=== PATIENT | female | born 1970 | race Caucasian/White ===

== ENCOUNTER → 2019-06-21 | Outpatient (CLI) | payer BC ==
--- NOTE | 2019-06-21 16:57 | Diagnostic Imaging Report ---
PROCEDURE: US Non-ob pelvis comp/trans. TECHNIQUE: Multiple real-time grayscale images were obtained of the pelvis in various projections endovaginally. Transabdominal imaging was also performed. INDICATION: Abnormal uterine bleeding. FINDINGS: Uterus is anteverted measuring 10.5 x 6.1 x 6.0 cm. No uterine mass is detected. Endometrium is 10 mm in thickness. There is some mild heterogeneity to the endometrium, but no discrete mass is identified. Echogenic foci on both the right and left side of the uterus are noted, likely representing patient's known Essure devices. Right ovary measures 3.4 x 1.5 x 3.3 cm. Right ovary does contain a 15 mm cyst. There is blood flow to the right ovary. Left ovary was not visualized. No adnexal mass or free fluid is detected. IMPRESSION: 1. 15 mm right ovarian cyst. 2. Mild thickening of the endometrium. Dictated by: Dictated on workstation # [id number]
== END ==
LOC: RAD 13:40
PROVIDERS: ATTEND Obstetrics & Gynecology
DX: Z12.31 Encounter for screening mammogram for malignant neoplasm of breast (principal); N83.201 Unspecified ovarian cyst, right side
CPT/HCPCS: 76830; 76856; 77063; 77067

== ENCOUNTER → 2019-07-06 | Outpatient (CLI) | payer BC ==
--- NOTE | 2019-07-06 13:08 | Diagnostic Imaging Report ---
Indication: Right breast densities. Patient presents for additional views. Correlation is made with recent screening study from 06/21/2019. Unilateral right 2-D and 3-D diagnostic mammography was performed including spot compression, MLO and conventional 90 degree lateral views. There are some persistent nodular densities in the outer aspect of the right breast approximately 4 and 6 cm from the nipple. These appear to be slightly cephalad. No other abnormalities are seen. IMPRESSION: BI-RADS 0. Persistent densities in the upper and outer aspect of the right breast, as described. Further evaluation with ultrasound is recommended and will be performed today. ACR BI-RADS Category 0: Incomplete. (Needs additional imaging evaluation). Result letter will be mailed to the patient. Note: At least 10% of breast cancer is not imaged by mammography. Dictated by: Dictated on workstation # [id number]
--- NOTE | 2019-07-06 14:14 | Diagnostic Imaging Report ---
INDICATION: Right breast densities. This study is performed for further evaluation. COMPARISON: Correlation is made with the diagnostic mammogram from earlier this same day. FINDINGS: Sonographic interrogation of the upper and outer aspect of the right breast was performed. There is a bilobed slightly complex cyst at the 9 o'clock location of the right breast 6 cm from the nipple. This in aggregate measures approximately 9 mm x 4 mm x 6 mm. This most likely accounts for one of the densities noted mammographically. There is a second region of hypoechogenicity at the 10 o'clock location 4 cm from the nipple which may represent either a cyst cluster or perhaps a prominent duct. This measures approximately 10 mm x 5 mm x 4 mm. This may account for the mammographic density. No concerning sonographic finding is identified. IMPRESSION: Probable complex cysts and/or prominent ducts in the upper outer right breast as described, likely accounting for the mammographic densities. These have fairly benign features. Even so, a followup right mammogram and right breast ultrasound in 6 months would be recommended to show continued stability. ACR BI-RADS Category 3: Probably benign findings. Dictated by: Dictated on workstation # [id number]
== END ==
LOC: RAD 12:46
PROVIDERS: ATTEND Obstetrics & Gynecology
DX: R92.2 Inconclusive mammogram (principal)

== ENCOUNTER 2019-07-21 05:39 | Outpatient (RCR) | payer BC ==
[~2019-07-21] VITALS: Ht 160 cm; Wt 92.9 kg
[2019-07-21] MEDS ORDERED: CYAN200014 PO (09:23)
[2019-07-21] MEDS ORDERED: ASCO-262 PO (09:23)
[2019-07-21 10:02] LABS: BASOPHILS % (AUTO) 0 % (0-10); EOSINOPHILS # (AUTO) 0.3 10^3/uL (0.0-0.3); EOSINOPHILS % (AUTO) 4 % (0-10); HEMATOCRIT 42 % (35-52); HEMOGLOBIN 14.6 G/DL (11.5-16.0); LYMPHOCYTES # (AUTO) 2.6 X 10^3 (1.0-4.0); LYMPHOCYTES % (AUTO) 37 % (12-44); MEAN CORPUSCULAR HEMOGLOBIN 31 PG (25-34); MEAN CORPUSCULAR HGB CONC 35 G/DL (32-36); MEAN CORPUSCULAR VOLUME 90 FL (80-99); MEAN PLATELET VOLUME 9.9 FL (7.4-10.4); MONOCYTES # (AUTO) 0.5 X 10^3 (0.0-1.0); MONOCYTES % (AUTO) 8 % (0-12); NEUTROPHILS # (AUTO) 3.5 X 10^3 (1.8-7.8); NEUTROPHILS % (AUTO) 51 % (42-75); PLATELET COUNT 326 10^3/uL (130-400); RED CELL DISTRIBUTION WIDTH 13.3 % (10.0-14.5)
[2019-07-25] MEDS ORDERED: SIME80TA16 PO (07:31)
[2019-07-25] MEDS ORDERED: IBUP-844 PO (07:31)
[2019-07-25] MEDS ORDERED: DCS100C PO (07:31)
[2019-07-25] MEDS ORDERED: BENZ1LOZ64 MM (07:31)
[2019-07-25] MEDS ORDERED: HYDR-34 PO (07:31)
== END 2019-07-21 10:31 | disposition home or self-care (01) ==
LOC: PREOP 05:39
PROVIDERS: ATTEND Obstetrics & Gynecology
DX: Z01.812 Encounter for preprocedural laboratory examination (principal); N93.8 Other specified abnormal uterine and vaginal bleeding; N81.89 Other female genital prolapse; N94.6 Dysmenorrhea, unspecified; Z20.828 Contact with and (suspected) exposure to other viral communicable diseases
CPT/HCPCS: 36415; 85025; 86850; 86900; 86901; 87081; 87635

== ENCOUNTER 2019-07-25 06:10 | Day surgery (SDC) | payer BC ==
[~2019-07-25] VITALS: Ht 160 cm; Wt 92.9 kg
[2019-07-25] VITALS (10 sets, daily range): BP systolic 106–133; BP diastolic 58–73
[~2019-07-25 06:10] MED LIST: ASCO-262 PO; CYAN200014 PO
[2019-07-25] MEDS ORDERED: LACTATED RINGERS 1,000 ML IV SCH (06:12)
[2019-07-25] MEDS ORDERED: CLINDAMYCIN 900 MG/50 ML IVPB 50 ML IV ONE ×2 (06:15→06:35)
[2019-07-25] MEDS ORDERED: metroNIDAZOLE 500MG/100ML IVPB 100 ML IV ONE (06:15)
[2019-07-25] MEDS ORDERED: VASOPRESSIN INJECTION 20 UNIT/ML VIAL ONE (06:42)
[2019-07-25] MEDS ORDERED: ESTROGENS CONJ. CREAM 30 GM (PREMARIN) TUBE ONE (06:42)
[2019-07-25] MEDS ORDERED: BUPIVACAINE 0.25% 30 ML (SENSORCAINE) VIAL ONE (06:42)
[2019-07-25] MEDS ORDERED: NS (IVPB) 100 ML ONE (06:42)
--- OUTSIDE RECORDS SUMMARY | 2019-07-25 06:43 | XMS REPORT ---
Author Author Lissa GODINEZ [facility] Address [address] [place], [place] [id number] Care Team Providers Care Admeasurer Name Role Phone TONE GODINEZ PCP Allergies and Adverse Reactions Not available. Plan of Treatment Planned Activity Comments Planned Date Planned Time Plan/Goal CBC with Differential 06/02/2018 12:00 AM CMP 06/02/2018 12:00 AM .Lipid Panel 06/02/2018 12:00 AM THYROID PANEL. 06/02/2018 12:00 AM THYROID PANEL. 06/02/2018 12:00 AM THYROID PANEL. 06/02/2018 12:00 AM Medications Active Name Start Date Estimated Completion Date SIG Co mments phentermine 37.5 mg oral capsule take 1 capsule (37.5 mg) by oral route once daily before breakfast Problem List Not available. Vital Signs Date Time BP-Sys(mm[Hg] BP-Gilma(mm[Hg]) HR(bpm) RR(rpm) Temp WT HT HC BMI BSA BMI Percentile O2 Sat(%) 06/02/2018 8:25:00 AM 128 mmHg 86 mmHg 104 bpm 18 rpm 98.1 F 185 lbs 65 in 30.7853 kg/m 1.9617 m 98 % Social History Name Description Comments Tobacco Never smoker Alcohol Current some day Uses seatbelts History of Procedures Date Ordered Description Order Status 06/02/2018 12:00 AM ROUTINE VENIPUNCTURE Reviewed Results Summary Not available. History Of Immunizations Not available. History of Past Illness Name Date of Onset Comments Fatigue Jun 02 2018 9:17AM Hyperlipemia Jun 02 2018 9:17AM Payers Insurance Name Company Name Plan Name Plan Number Policy Number Shyam cy Group Number Start Date [facility] [id number] [facility] [id number] N/A History of Encounters Visit Date Visit Type Provider 06/02/2018 Office visit TONE BELL
--- OUTSIDE RECORDS SUMMARY | 2019-07-25 06:43 | XMS REPORT | Continuity of Care Document ---
Demographics Preferred Language Unknown Marital Status Unknown Voodoo Affiliation Unknown Race Unknown Ethnic Group Unknown Author Organization Unknown Address Unknown Phone Unavailable Allergies Active Description Code Type Severity Reaction Onset Reported/Identified Relationship to Patient Clinical Status Yes KEFLEX UNKNOWN UNKNOWN Yes cephalexin [id number] Drug Allerg y Mild HIVES 07/21/2019 Medications There is no data. Problems Date Dx Coded Attending Type Code Diagnosis Diagnosed By 2018 W 466.0 ACUT E BRONCHITIS 2018 W J20.9 ACUT E BRONCHITIS, UNSPECIFIED 06/22/2019 [facility] DOTONE S Ot N83.201 UNSPECIFIED OVARIAN CYST, RIGHT SIDE 06/22/2019 [facility] , TONE S Ot Z12.31 ENCNTR SCREEN MAMMOGRAM FOR MALIGNANT NE 07/08/2019 [facility] TONE CORTEZ S Ot R92.2 INCONCLUSIVE MAMMOGRAM 07/18/2019 [facility] TONE CORTEZ S Ot N83.201 UNSPECIFIED OVARIAN CYST, RIGHT SIDE 07/18/2019 [facility] , TONE S Ot Z12.31 ENCNTR SCREEN MAMMOGRAM FOR MALIGNANT NE Procedures Code Description Performed By Per formed On V2520 Cont act lens hydrophilic 01/01/2016 Results Test Result Range Coronavirus SARS-CoV-2 SO 2018 - 0 08:34 Coronavirus Ab [Units/volume] in Serum Negative Negative Complete blood count (CBC) with automate d white blood cell (WBC) differential - 07/21/19 09:40 Blood leukocytes automated count (number/volume) 7.0 10*3/uL 4.3-11.0 Blood erythrocytes automated count (number/volume) 4.69 10*6/uL 4.35-5.85 Venous blood hemoglobin measurement (mass/volume) 14.6 g/dL 11.5-16.0 Blood hematocrit (volume fraction) 42 % 35-52 Automated erythrocyte mean corpuscular volume 90 [ foz_us] 80-99 Automated erythrocyte mean corpuscular h emoglobin (mass per erythrocyte) 31 pg 25-34 Automated erythrocyte mean corpuscular h emoglobin concentration measurement (mass/volume) 35 g/dL 32-36 Automated erythrocyte distribution width ratio 13. 3 % 10.0- 14.5 Automated blood platelet count (count/volume) 326 10*3/uL 130-400 Automated blood platelet mean volume measurement 9.9 [foz_us] 7.4-10.4 Automated blood neutrophils/100 leukocytes 51 % 42-75 Automated blood lymphocytes/100 leukocytes 37 % 12-44 Blood monocytes/100 leukocytes 8 % 0-12 Automated blood eosinophils/100 leukocytes 4 % 0-10 Automated blood basophils/100 leukocytes 0 % 0-10 Blood neutrophils automated count (number/volume) 3.5 10*3 1.8-7.8 Blood lymphocytes automated count (number/volume) 2.6 10*3 1.0-4.0 Blood monocytes automated count (number/volume) 0. 5 10*3 0.0-1.0 Automated eosinophil count 0.3 10*3/uL 0 .0-0.3 Automated blood basophil count (count/volume) 0.0 10*3/uL 0.0-0.1 Blood type T Indirect antibody screen pa marjan - 07/21/19 09:40 WRISTBAND NUMBER [id number] NRG ABO+Rh group AP NRG Blood group antibody screen NEGATIVE NR G Methicillin resistant Staphylococcus aur eus (MRSA) screening culture - 07/21/19 09:40 Methicillin resistant Staphylococcus aureus (MRSA) scr eening culture NEG NRG Encounters ACCT No. Visit Date/Time Discharge Status Pt. Type Provider Facility Loc./Unit Complaint [id number] 2018 14:44:00 Document Registration [id number] 01/01/2016 00:00:00 Document Registration [id number] 07/21/2019 05:39:00 10:31:00 DIS Outpatient TONE STEPHEN DO [facility] PREOP PELVIC ORGAN PROLAPSE, ABNORMAL UTERINE BLEEDING [id number] 07/06/2019 12:46:00 23:59:59 CLS Outpatient TONE STEPHEN DO [facility] RAD ABN MAMMO OF RIGHT SON AST [id number] 06/21/2019 13:40:00 23:59:59 CLS Outpatient TONE STEPHEN DO [facility] RAD AUB/SCREENING [id number] 07/25/2019 07:30:00 P EN Preadmit FENECH DO, TONE S [facility] SDC PELVIC ORGAN PROLAPSE, ABNOR MAL UTERINE BLEEDING
--- OUTSIDE RECORDS SUMMARY | 2019-07-25 06:43 | XMS REPORT ---
Author Author Lissa GODINEZ [facility] Address [address] [place], [place] [address] Care Team Providers Care Engineer First Assistant Name Role Phone TONE GODINEZ PCP Allergies and Adverse Reactions Not available. Plan of Treatment Not available. Medications Active Name Start Date Estimated Completion Date SIG Co mments phentermine 37.5 mg oral capsule take 1 capsule (37.5 mg) by oral route once daily before breakfast Vyvanse 30 mg oral capsule 06/03/2018 take 1 capsule (30 mg) by oral route once daily in the morning Problem List Description Status Onset Binge eating disorder Active Vital Signs Date Time BP-Sys(mm[Hg] BP-Gilma(mm[Hg]) HR(bpm) [...] Ordered Description Order Status 06/02/2018 12:00 AM COMPLETE CBC W/AUTO DIFF WBC Returned 06/02/2018 12:00 AM COMPREHEN METABOLIC PANEL Returned 06/02/2018 12:00 AM LIPID PANEL Returned 06/02/2018 12:00 AM ROUTINE VENIPUNCTURE Reviewed 06/02/2018 12:00 AM ASSAY OF TOTAL THYROXINE Returned 06/02/2018 12:00 AM ASSAY THYROID STIM HORMONE Returned 06/02/2018 12:00 AM ASSAY OF THYROID (T3 OR T4) Returned Results Summary Not available. History Of Immunizations Not available. History of Past Illness Name Date of Onset Comments Binge eating disorder Fatigue Jun 02 2018 9:17AM Hyperlipemia Jun 02 2018 9:17AM Fatigue, unspecified type Jun 02 2018 8:27AM Weight gain Jun 02 2018 8:27AM Binge eating disorder Jun 02 2018 8:27AM Exercise Counseling Jun 02 2018 8:27AM Payers Insurance Name Company Name Plan Name Plan Number Policy Number Shyam cy Group Number Start Date [facility] [id number] [facility] [id number] N/A History of Encounters Visit Date Visit Type Provider 06/02/2018 Office visit TONE BELL
--- OUTSIDE RECORDS SUMMARY | 2019-07-25 06:43 | XMS REPORT ---
Author Author Lissa GODINEZ [facility] Address [address] [place], [place] [phone] Care Team Providers Care Wheel Polisher Name Role Phone TONE GODINEZ PCP Allergies [...] once daily in the morning Problem List Not available. Vital Signs Date [...] Number Shyam cy Group Number Start Date [facility] [id number] [facility] [id number] 4 N/A History of Encounters Visit Date Visit Type Provider 06/02/2018 Office visit TONE BELL
--- OUTSIDE RECORDS SUMMARY | 2019-07-25 06:43 | XMS REPORT ---
Author Author Lissa GODINEZ [facility] Address [address] [place], [place] [phone] Care Team Providers Care Baker Second Name Role Phone TONE GODINEZ PCP Allergies [...] Number Shyam cy Group Number Start Date [facility] [id number] [facility] [id number] 4 N/A History of Encounters Visit Date Visit Type Provider 06/02/2018 Office visit TONE BELL
[2019-07-25] MEDS ORDERED: proPOfol 200 MG/20 ML (DIPRIVAN) VIAL IV ONE (06:46)
[2019-07-25] MEDS ORDERED: ONDANSETRON 4 MG/2 ML (SDV) Z0FRAN ONE (06:46)
[2019-07-25] MEDS ORDERED: ROCURONIUM 10 MG/ML 5 ML SYRINGE IV ONE ×2 (06:46→08:24)
[2019-07-25] MEDS ORDERED: fentaNYL INJECTION 100 MCG/2 ML AMP ONE (06:46)
[2019-07-25] MEDS ORDERED: LIDOCAINE PF 2% 5 ML (XYLOCAINE) VIAL ONE (06:46)
[2019-07-25] MEDS ORDERED: MIDAZOLAM 2 MG/2 ML (VERSED) VIAL ONE (06:46)
[2019-07-25] MEDS ORDERED: LACTATED RINGERS 1,000 ML IV ONE (06:46)
[2019-07-25] MEDS ORDERED: DEXAMETHASONE 10 MG/ML (DECADRON) 1 ML VIAL ONE (06:48)
[2019-07-25] MEDS ORDERED: NEOSTIGMINE 3 MG/3 ML VIAL ONE (06:48)
[2019-07-25] MEDS ORDERED: SEVOFLURANE (ULTANE) 15 ML INHAL SOLN ONE ×7 (06:48→08:55)
[2019-07-25] MEDS ORDERED: GLYCOPYRROLATE 0.2 MG/ML (ROBINUL) 2 ML VIAL ONE ×2 (06:48→08:54)
[2019-07-25] MEDS: LACTATED RINGERS 1,000 ML IV PRN ×2 (07:10→07:50)
--- NOTE | 2019-07-25 07:12 | History & Physical-Surgical ---
HPO-Surgical History of Present Illness Chief Complaint: Pelvic pressure Diagnosis/Surgical Indication: PELVIC ORGAN PROLAPSE Procedure: RATH POSS BSO, ANTERIOR COLPORRHAPHY Date of Surgery: Jul 25, 2019 Allergies and Home Medications Allergies Coded Allergies: cephalexin (Verified Allergy, Mild, HIVES, 07/21/19) Home Medications Ascorbate Calcium 500 Mg Tablet, 1,000 MG PO DAILY, (Reported) Cyanocobalamin (Vitamin B-12) 2,000 Mcg Tablet, 2,000 MCG PO DAILY, (Reported) Patient Home Medication List Home Medication List Reviewed: Yes Past Jexydhl-Hhlgzb-Iedbaw Hx Patient Social History Alcohol Use: Occasionally Uses Recreational Drug Use: No Smoking Status: Current Everyday Smoker Type Used: Cigarettes 2nd Hand Smoke Exposure: Yes Recent Hopitalizations: No Immunizations Up To Date Pediatric: No Seasonal Allergies Seasonal Allergies: Yes Surgeries Yes (BMT AND REMOVAL, ESURE PLACEMENT, ORAL) Section Respiratory No Cardiovascular No Neurological No Reproductive System Sexually Transmitted Disease: No HIV/AIDS: No Female Reproductive Disorders: Menstrual Problems Genitourinary No Gastrointestinal No Musculoskeletal No Endocrine History of Endocrine Disorders: No HEENT History of HEENT Disorders: Yes (CONTACTS) Loss of Vision: Denies Hearing Impairment: Denies Cancer No Psychosocial History of Psychiatric Problem: No Integumentary History of Skin or Integumenta: No Blood Transfusions History of Blood Disorders: Yes (HX ANEMIA) Adverse Reaction to a Blood Tr: No (N/A) Exam Vital Signs Capillary Refill : General Appearance: Alert, Oriented X3 HEENT: Atraumatic Respiratory: Clear to Auscultation Cardiovascular: Regular Rate Abdominal: Normal Bowel Sounds Extremities: Normal Pulses Skin: No Rashes Neuro: Normal Gait Psych/Mental Status: Mental Status NL Assessment/Plan Assessment and Plan AUB, Pelvic organ prolapse, Dysmenorrhea Admission Diagnosis POP AUB Dysmenorrhea Admission Status: Observation Reason for Inpatient Admission: RATLH w poss BSO and Anterior colporaphy TONE STEPHEN DO Jul 25, 2019 07:12
[2019-07-25] MEDS ORDERED: DOCUSATE SODIUM 100 MG (COLACE) CAP PO PRN (07:15)
[2019-07-25] MEDS ORDERED: ZOLPIDEM 5 MG (AMBIEN) TAB PO PRN (07:15)
[2019-07-25] MEDS ORDERED: HYDROcodone/APAP 7.5 MG/325 MG (LORTAB, LORCET PLUS) TABLET PO PRN (07:15)
[2019-07-25] MEDS ORDERED: CHLORASEPTIC LOZENGE MM PRN (07:15)
[2019-07-25] MEDS ORDERED: ONDANSETRON 4 MG/2 ML (SDV) Z0FRAN IV PRN (07:15)
[2019-07-25] MEDS ORDERED: SIMETHICONE 80 MG (MYLICON) CHEW PO PRN (07:15)
[2019-07-25] MEDS ORDERED: ANTACID SUSP 30 ML UDC (MYLANTA) PO PRN (07:15)
--- NOTE | 2019-07-25 07:23 | Discharge Inst-Women's Service ---
Discharge Inst-Women's Serv Depart Medication/Instructions New, Converted or Re-Newed RX: RX on Chart Problems Reviewed?: Yes Consults/Follow Up Additional Follow Up: Yes Activity Activity: Activity as Tolerated Driving Instructions: No Driving for 1 Week NO SMOKING: NO SMOKING Nothing Inside Vagina: No Douching, No [place], No Tampons Diet Discharge Diet: No Restrictions Symptoms to Report to : Bleeding Excessive, Pain Increased, Fever Over 101 Degrees F, Vaginal Bleeding Increase, Questions/Concerns For Any Problems or Questions: Contact Your Physician Skin/Wound Care Infection Signs and Symptoms: Increased Redness, Foul Odor of Wound, Increased Drainage, Skin Itchy or Has a Rash, Increased Swelling, Temperature Above 101 F Operative Area Clean and Dry: Keep Incision Clean/Dry Stitches/[place]/Dermabond: Dermabond, Care of Stitches Bathing Instructions: TONE Moreno DO Jul 25, 2019 07:23
[2019-07-25] MEDS ORDERED: HYDR-34 PO (07:31)
[2019-07-25] MEDS ORDERED: BENZ1LOZ64 MM (07:31)
[2019-07-25] MEDS ORDERED: IBUP-844 PO (07:31)
[2019-07-25] MEDS ORDERED: SIME80TA16 PO (07:31)
[2019-07-25] MEDS ORDERED: DCS100C PO (07:31)
[2019-07-25] MEDS ORDERED: HYDROmorphone 2 MG/ML VIAL (DILAUDID) ONE (07:35)
[2019-07-25] MEDS: KETOROLAC 30 MG/ML VIAL IV PRN ×3 (09:00→21:41)
[2019-07-25] MEDS ORDERED: HYDROmorphone 2 MG/ML VIAL (DILAUDID) IV ONE (09:15)
[2019-07-25] MEDS ORDERED: ONDANSETRON 4 MG/2 ML (SDV) Z0FRAN IVP PRN (09:15)
--- NOTE | 2019-07-25 09:55 | NUR ---
Pt arrived via bed awake and alert from PACU recovery. Terell Fletcher RN report received at bedside. pt reports pain is tolerable. fresh ice water at bedside for pt. plan of care reviewed with pt. pt verbalized understanding. requests soup. chicken noodle soup to bedside.
--- NOTE | 2019-07-25 10:33 | NUR ---
Respiratory notified of IS order
--- NOTE | 2019-07-25 10:38 | NUR ---
ice water refilled. pt eating chicken noodle soup.
[2019-07-25] MEDS: LACTATED RINGERS 1,000 ML IV SCH ×3 (10:43→18:57)
--- NOTE | 2019-07-25 12:16 | Anesthesia-General Post-Op ---
General Patient Condition Mental Status/LOC: Same as Preop Cardiovascular: Satisfactory Nausea/Vomiting: Absent Respiratory: Satisfactory Pain: Controlled Complications: Absent Post Op Complications Complications None Follow Up Care/Instructions Patient Instructions None needed. Anesthesia/Patient Condition Patient Condition Patient is doing well, no complaints, stable vital signs, no apparent adverse anesthesia problems. No complications reported per nursing. D/C home per [facility] Criteria: Yes PAPITO HEATH CRNA Jul 25, 2019 12:16
--- NOTE | 2019-07-25 19:47 | OPERATIVE REPORT ---
DATE OF SERVICE: 07/25/2019 PREOPERATIVE DIAGNOSES: 1. A 49-year-old female with pelvic organ prolapse. 2. Abnormal uterine bleeding. 3. Dysmenorrhea. POSTOPERATIVE DIAGNOSES: 1. A 49-year-old female with pelvic organ prolapse. 2. Abnormal uterine bleeding. 3. Dysmenorrhea. PROCEDURE: Robotic-assisted total laparoscopic hysterectomy with bilateral salpingectomy and anterior colporrhaphy. SURGEON: Jeff Stephen DO ANESTHESIA: General endotracheal. ESTIMATED BLOOD LOSS: Minimal. URINE OUTPUT: 500 mL, clear at the end of the procedure. FLUIDS: 2000 mL lactated Ringer's solution. FINDINGS: A grossly normal appearing external female genitalia with the exception of a grade III cystocele. Grossly normal appearing cervix, but descent of the cervix to the vaginal introitus with Valsalva. Grossly normal appearing bilateral ovaries and fallopian tubes. SPECIMEN SENT: Uterus, bilateral fallopian tubes. INDICATIONS FOR PROCEDURE: This 49-year-old female is a patient who initially came to my office for heavy painful periods. She also noticed pelvic pressure and a little bit of stress urinary incontinence. The patient had been diagnosed with this for years. Her evaluation involving the pelvic ultrasound as well as endometrial biopsy both of those came back within normal limits. I discussed with the patient indications for pelvic organ prolapse with a strong indication for proceeding with hysterectomy as well as a suspension procedure like an anterior colporrhaphy. Risks of the procedure were discussed with the patient in detail including risk of bleeding, infection, damage to any surrounding structures including, but not limited to bowel, bladder, ureter, kidneys, possible need for reoperation, postoperative recovery timeframe, postoperative complications that may occur, risk from anesthesia and even . After all these things were discussed with the patient in detail, we also talked about the resolution of her dysmenorrhea and abnormal periods, which she is happy with this as well. All of her questions were answered, consent was obtained, and the patient was taken to the operating room. OPERATIVE REPORT IN DETAIL: Once in the operating room, anesthesia was found to be adequate, placed in dorsal lithotomy position, prepped and draped in normal sterile fashion. A timeout was performed. Smith catheter placed using sterile technique. A weighted speculum inserted to the patient's vagina. Right angle retractor was used to visualize the cervix, grasped at 12 o'clock position using a single tooth tenaculum. 0 Vicryl suture was then placed, the anterior lip of the cervix and tenaculum was removed. 0 Vicryl suture was then used as my retraction point on the cervix. I then gently sound the uterine cavity depth was found to be 8 cm. I selected an 8 cm Bhavana uterine manipulator and a 3.5 cm colpotomy ring. The Bhavana was assembled and the manipulator tip was placed within the uterus where the balloon was deployed and the colpotomy ring was advanced around the vaginal fornix. Excellent uterine manipulation is noted after doing this. I then removed all the other instruments from the patient's vagina, I performed a change of gloves and took my attention to the abdomen where infraumbilically I infiltrated this area using 0.25% Marcaine. I made an 8 mm incision, directed Veress needle through the incision until intraperitoneal placement was confirmed using saline drop test. I then proceeded with insufflation using CO2 gas and opening pressure of 3 mmHg was noted. I proceeded to maximum pressure of 15 mmHg, which I removed the Veress needle and introduced an 8 mm blunt da Ameya camera trocar. Once this was in place, I am able to confirm intraperitoneal placement using the da Ameya laparoscope. The patient was then placed in steep Trendelenburg after brief scan of the upper abdominal anatomy appears normal. Once in steep Trendelenburg, I made to visualize the pelvic anatomy as described in my findings above. I placed two lateral trocars 8 cm lateral to my infraumbilical trocar site. The skin was infiltrated using 0.25% Marcaine. Incisions were made with a knife and the trocars were placed under direct visualization of laparoscope. Once these trocars were in place, I brought in the da Ameya robot and docked in appropriate fashion, placing the da Ameya vessel sealer in the left hand and monopolar raciel in the right hand. I then took my place at the [employer] operative console. I performed the following dissection bilaterally starting at the uteroovarian ligament, I bipolar cauterized and transected using vessel sealer. I created a window in the mesosalpinx and took this laterally the fallopian tube from its blood supply. I then grasped the round ligament, bipolar cauterized and transected using the vessel sealer. I then grasped the entire broad ligament, I bipolar cauterized and transected using vessel sealer down to the level of the lower uterine segment, at which point I the anterior and posterior leaflets of the broad ligament. Anterior leaflet was taken around the anterior vaginal fornix, posterior leaflet was taken around to the posterior vaginal fornix. This allows me to skeletonize the uterine vessels laterally, which I then bipolar cauterized and transected using vessel sealer. I then created a colpotomy at 12 o'clock position using monopolar raciel and took this circumferentially around the vaginal fornix amputating the cervix away from the vagina. The cervix, uterus, bilateral fallopian tubes were then removed through the vagina. I then proceeded with closing the vaginal cuff. I used 2-0 Vicryl suture in a [id number] fashion colposuspending them laterally to the uterosacral ligaments. I then closed the remainder of the vaginal cuff using 2-0 V-Loc in a running fashion, after which there was no active bleeding noted from any of my dissection planes. I undocked the da Ameya robot and proceeded with remainder of the case laparoscopically, which I then copiously irrigated the pelvis using normal saline. Once again, there was no active bleeding noted from any of my dissection planes. I placed Surgiflo hemostatic agent over all my planes of dissection to ensure excellent postoperative hemostasis. I then have the patient taken out of steep Trendelenburg where I removed the lateral trocars under direct visualization of laparoscope. There was no evidence of bleeding. I removed these trocars. The infraumbilical trocar is left in place to release insufflation and to introduce 10 mL of 0.25% Marcaine for postoperative pain management. I then removed this trocar as well. The skin was reapproximated using 4-0 Monocryl in interrupted subcuticular stitches. Dermabond was applied to the incisions and Band-Aids were placed over these incisions as well. I then took my attention back to the pelvis where the cystocele was addressed, I grasped the more distal margin of the cystocele at the bladder neck. I grasped the vaginal mucosa with the Allis clamp and infiltrated the margins of the cystocele on the vaginal mucosa using vasopressin 20 units in 100 mL of normal saline as a concentration. Once all the planes of dissection are infiltrated and adequate blanching was noted in the vaginal mucosal tissue I then created an incision at the more distal margin of the cystocele. Using a knife, I then undermined this incision in the submucosal plane using Metzenbaum scissors. I do this down the midline of the cystocele and then created an incision down this margin using the Metzenbaum scissors. I then grasped the lateral aspect of the incision and elevated up and dissected off the underlying vesicovaginal fascia. I do this bilaterally. This allows me access to the vesicovaginal fascia laterally. I then plicated the vesicovaginal fascia using 0 Vicryl suture in interrupted fashion. I then trimmed the excess vaginal mucosa that was left over and reapproximated the vaginal mucosa on its new margin using 3-0 Vicryl suture in a running locked fashion, after which no active bleeding noted from any of these dissection planes. I then packed the vagina using Premarin soaked packing and leave the vaginal packing in place and Smith catheter in place. All other instruments were removed from the patient's vagina. The patient tolerated the procedure well and sent to recovery in stable condition. Lap and sponge counts were correct at the end of the procedure. Instrument counts correct as well. 900 mg of clindamycin and 500 mg of Flagyl were given preoperatively for infection prophylaxis. Job ID: [id number] DocumentID: [id number] Dictated Date: 07/25/2019 10:17:31 Mechanic Chief Date: 07/25/2019 19:47:38 Dictated By: JEFF STEPHEN DO
[2019-07-26] MEDS: IBUPROFEN 600 MG (MOTRIN) TAB PO SCH ×2 (00:58→06:33)
[2019-07-26 01:45] VITALS: BP 105/56
[2019-07-26] MEDS ORDERED: ENOXAPARIN 40 MG/0.4 ML (LOVENOX) SYR SQ SCH (07:00)
[2019-07-26 07:54] VITALS: BP 118/70
--- NOTE | 2019-07-26 07:54 | NUR ---
initial shift assessment completed, see interventions for further. POC reviewed, states understanding.
--- NOTE | 2019-07-26 08:30 | NUR ---
ambulated to BR. voided 100cc urine without difficulty.
--- NOTE | 2019-07-26 09:15 | NUR ---
dismissal instructions given, verbalizes understanding. reviewed sx's to RTC, dismissal Rx's and follow up appointments. signature page signed, placed on chart.
--- NOTE | 2019-07-26 09:20 | NUR ---
pt ambulated to private vehicle with this RN and s/o @ side. no sx's of distress noted. pt stable upon dismissal.
== END 2019-07-26 09:20 | disposition home or self-care (01) ==
LOC: SDC 06:10 → WS 09:55 → SDC 07-26 09:20
PROVIDERS: ATTEND Obstetrics & Gynecology
DX: D25.1 Intramural leiomyoma of uterus (principal); D25.2 Subserosal leiomyoma of uterus; N81.10 Cystocele, unspecified; N39.3 Stress incontinence (female) (male); N72 Inflammatory disease of cervix uteri; N88.8 Other specified noninflammatory disorders of cervix uteri; N80.0 Endometriosis of uterus; N83.8 Other noninflammatory disorders of ovary, fallopian tube and broad ligament; F17.210 Nicotine dependence, cigarettes, uncomplicated; Z88.1 Allergy status to other antibiotic agents; Z86.2 Personal history of diseases of the blood and blood-forming organs and certain disorders involving the immune mechanism
CPT/HCPCS: 36415; 82565; 84703; 86850; 86900; 86901; 88307; 88342; 94664

== ENCOUNTER → 2020-02-13 | Outpatient (CLI) | payer BC ==
[~2020-02-13] MED LIST changes: +BENZ1LOZ64 MM; +DCS100C PO; +HYDR-34 PO; +IBUP-844 PO; +SIME80TA16 PO
--- NOTE | 2020-02-13 13:47 | Diagnostic Imaging Report ---
INDICATION: 6 month followup right breast nodules. COMPARISON: Prior ultrasound from 07/06/2019. FINDINGS: The previously noted probable small cysts at the 10 o'clock location of the right breast 4 cm from the nipple are again noted, very similar to the prior exam. There are some associated dilated ducts traced back to the nipple. There are several small cysts in the 9 o'clock location 4 cm from nipple, similar to the prior exam. No solid mass is detected. IMPRESSION: Cysts at the 9 and 10 o'clock locations of the right breast with associated ductal dilatation. These are stable when compared with the exam from 07/06/2019. The patient may return to routine annual screening mammography. ACR BI-RADS Category 2: Benign findings. Dictated by: Dictated on workstation # [id number]
--- NOTE | 2020-02-13 15:27 | Diagnostic Imaging Report ---
INDICATION: Followup right breast density. COMPARISON: 06/21/2019 and 10/11/2013. TECHNIQUE: Unilateral right 2D and 3D diagnostic mammography was performed with CAD. FINDINGS: Scattered fibroglandular densities are identified bilaterally. An asymmetric density in the upper and outer aspect of the right breast at mid depth appears stable. No new mass or malignant appearing microcalcifications are seen. The right axilla is unremarkable. IMPRESSION: Stable right breast density. Further evaluation with ultrasound is recommended and will be performed today. ACR BI-RADS Category 0: Incomplete. (Needs additional imaging evaluation). Result letter will be mailed to the patient. Note: At least 10% of breast cancer is not imaged by mammography. Dictated by: Dictated on workstation # [id number]
== END ==
LOC: RAD 12:45
PROVIDERS: ATTEND Obstetrics & Gynecology
DX: N60.01 Solitary cyst of right breast (principal); R92.2 Inconclusive mammogram
CPT/HCPCS: 76642; 77065; G0279

== ENCOUNTER → 2021-03-25 | Outpatient (CLI) | payer BC ==
[~2021-03-25] MED LIST changes: -DCS100C PO; +DOCU-239 PO
== END ==
LOC: RAD 08:45
PROVIDERS: ATTEND Obstetrics & Gynecology
DX: Z12.31 Encounter for screening mammogram for malignant neoplasm of breast (principal)
CPT/HCPCS: 77063; 77067

== ENCOUNTER → 2022-07-25 | Outpatient (CLI) | payer BC ==
--- NOTE | 2022-07-25 13:20 | Diagnostic Imaging Report ---
INDICATION: Routine screening. Comparison is made with prior mammogram from 03/25/2021 and 06/21/2019. 2-D and 3-D bilateral screening mammography was performed with CAD. Both breasts are heterogeneously dense, limiting the sensitivity of mammography. The parenchymal pattern is stable. No mass or malignant-appearing microcalcifications are seen. Axillae are unremarkable. IMPRESSION: No mammographic features suspicious for malignancy are identified. ACR BI-RADS Category 1: Negative. Result letter will be mailed to the patient. Note: At least 10% of breast cancer is not imaged by mammography. BI-RADS Category 1 Dictated by: Dictated on workstation # [id number]
== END ==
LOC: RAD 10:52
PROVIDERS: ATTEND Nurse Practitioner Women's Health
DX: Z12.31 Encounter for screening mammogram for malignant neoplasm of breast (principal)
CPT/HCPCS: 77063; 77067